=== PATIENT | female | born 1965 | race Caucasian/White ===

== ENCOUNTER 2017-05-30 12:32 | Emergency (ER) | payer BC ==
--- NOTE | 2017-05-30 12:53 | UC ---
Headache HPI - HPI Summary HPI Summary: 52 yo female with the acute onset of left hemicranial MALDONADO about 3 hours ago photophobic nausea facial flushing no CP or SOB Hx of migraine but they always start gradually for her and ramp up in severity recently started on prednisone for bee sting She states she called her MD and was told to come here for a steroid shot - History Of Current Complaint Chief Complaint: UCHeadache Stated Complaint: HEAD PAIN Time Seen by Provider: 05/30/17 12:45 Hx Obtained From: Patient Onset/Duration: Sudden Onset Onset Of Symptoms: Sudden Initially Headache Was: "Worst Headache Ever" - equal to her worse MALDONADO ever Currently Pain Is: Current Pain Scale(0-10)= - 10 Pain Intensity: 10 Pain Scale Used: 0-10 Numeric Timing: Constant Character: Throbbing Location of Headache: Temporal - left Aggravating Factor: Nothing Allevating Factors: Nothing Associated Signs And Symptoms: Positive: Nausea - Allergies/Home Medications Allergies/Adverse Reactions: Allergies Allergy/AdvReac Type Severity Reaction Status Date / Time Nickel Allergy Unknown Verified 05/30/17 12:39 Reaction Details Thimerosal Allergy Unknown Verified 05/30/17 12:39 Reaction Details Home Medications: Home Medications NK [No Home Medications Reported] 05/30/17 [History Confirmed 05/30/17] PMH/Surg Hx/FS Hx/Imm Hx Previously Healthy: Yes Neurological History: Migraine - Surgical History Surgical History: None - Family History Known Family History: Positive: Hypertension - Social History Alcohol Use: Occasionally Substance Use Type: None Smoking Status (MU): Never Smoked Tobacco Review of Systems Constitutional: Negative Skin: Negative Eyes: Negative ENT: Negative Respiratory: Negative Cardiovascular: Negative Gastrointestinal: Nausea Genitourinary: Negative Motor: Negative Neurovascular: Negative Musculoskeletal: Negative Neurological: Headache Psychological: Negative All Other Systems Reviewed And Are Negative: Yes Physical Exam Triage Information Reviewed: Yes Appearance: Well-Nourished, Pain Distress Vital Signs: Initial Vital Signs Temp 96.5 F 05/30/17 12:40 Pulse 88 05/30/17 12:40 Resp 20 05/30/17 12:40 BP 184/110 05/30/17 12:40 Pulse Ox 99 05/30/17 12:40 Vital Signs Reviewed: Yes Eyes: Positive: Conjunctiva Clear ENT: Positive: Hearing grossly normal, Pharyngeal erythema. Negative: Tonsillar exudate, Trismus, Muffled/hoarse voice Neck: Positive: Supple, Nontender, No Lymphadenopathy Respiratory: Positive: Lungs clear, Normal breath sounds, No respiratory distress, No accessory muscle use Cardiovascular: Positive: RRR, No Murmur Musculoskeletal: Positive: ROM Intact, No Edema Neurological: Positive: Alert, Other: - cn2-12 intact/dtr ++ and symmetrical GCS 15/15 Psychological Exam: Normal Skin Exam: Normal Headache Course/Dx - Course Course Of Treatment: [place] [facility] [place] [facility] [place] - Differential Dx/Diagnosis Provider Diagnoses: acute onset MALDONADO Discharge - Discharge Plan Condition: Guarded Disposition: TRANS HIGHER LVL OF CARE FAC
[2017-05-30] MEDS: Morphine INJ* 2 MG/ML 1 ML SYRINGE IV ONE (12:57)
[2017-05-30 12:58] VITALS: BP 165/81
== END 2017-05-30 13:12 | disposition short-term general hospital (02) ==
LOC: UCEAST 12:32
DX: R51 Headache (principal)
CPT/HCPCS: 93005; 96374; 99213; G0463; J2270

== ENCOUNTER 2017-05-30 13:32 | Emergency (ER) | payer BC ==
[2017-05-30] MEDS ORDERED: NS 0.9% 1000 ML* 1,000 ML IV ONE (14:27)
[2017-05-30] MEDS ORDERED: Ondansetron INJ* 2 MG/ML VIAL IV ONE (14:27)
[2017-05-30] MEDS ORDERED: diPHENhydraMINE IV* 50 MG/ML 1 ml VIAL (BENADRYL) IV ONE (15:32)
[2017-05-30] MEDS ORDERED: Metoclopramide IV* 5 MG/ML 2 ML VIAL IV ONE (15:32)
--- NOTE | 2017-05-30 16:52 | ED ---
Heidi Cooper SooYoung, scribed for Greg Nath on 05/30/17 at 1413 . Headache - HPI Summary HPI Summary: A 52 y/o F referred from [facility] [place] presents to ED with c/o sudden-onset migraine onset this AM. Pert PMHx: migraines. She states this is not the worst MALDONADO of her life. Associated sx: worsening nausea. Denies fever, ear pain, sore throat. She was given morphine at [facility] [place] which did not alleviate sx. Zofran has previously helped her migraines. Pt also notes that she got hives from a bee sting three days ago. She saw her PCP yesterday, and she took Prednisone last night. She notes have had Prednisone previously without a reaction. Non-smoker, no drugs. Occ ETOH. - History Of Current Complaint Chief Complaint: EDHeadache Stated Complaint: HEAD PAIN-SENT FROM [facility] Time Seen by Provider: 05/30/17 14:10 Hx Obtained From: Patient Onset/Duration: Sudden Onset, Started hours ago, Still Present Timing: Constant Associated Signs And Symptoms: Nausea - Allergies/Home Medications Allergies/Adverse Reactions: Allergies Allergy/AdvReac Type Severity Reaction Status Date / Time Nickel Allergy Unknown Verified 05/30/17 12:39 Reaction Details Thimerosal Allergy Unknown Verified 05/30/17 12:39 Reaction Details PMH/Surg Hx/FS Hx/Imm Hx Previously Healthy: Yes Endocrine/Hematology History: Denies: Hx Diabetes Opthamlomology History: Denies: Hx Legally Blind - Cancer History Hx Chemotherapy: No Hx Radiation Therapy: No Infectious Disease History: No Infectious Disease History: Denies: Hx Clostridium Difficile, Hx Hepatitis, Hx Human Immunodeficiency Virus (HIV), Hx of Known/Suspected MRSA, Hx Shingles, Hx Tuberculosis, Hx Known/ Suspected VRE, Hx Known/Suspected VRSA, History Other Infectious Disease, Traveled Outside the [place] in Last 30 Days - Family History Known Family History: Positive: Hypertension Negative: Other - neg: Breast CA - Social History Occupation: Employed Full-time Lives: Alone Alcohol Use: Occasionally Hx Substance Use: No Substance Use Type: Reports: None Hx Tobacco Use: No Smoking Status (MU): Never Smoked Tobacco Review of Systems Negative: Fever Negative: Sore Throat, Ear Ache Positive: Nausea Positive: Headache - migraine All Other Systems Reviewed And Are Negative: Yes Physical Exam Triage Information Reviewed: Yes Vital Signs On Initial Exam: Initial Vitals Temp Pulse Resp BP Pulse Ox 97.7 F 77 18 126/77 98 05/30/17 13:55 05/30/17 13:55 05/30/17 13:55 05/30/17 13:55 05/30/17 13:55 Vital Signs Reviewed: Yes Appearance: Positive: Well-Appearing, No Pain Distress Skin: Positive: Warm, Skin Color Reflects Adequate Perfusion, Dry Head/Face: Positive: Normal Head/Face Inspection Eyes: Positive: EOMI, LEW ENT: Positive: Normal ENT inspection Neck: Positive: Supple, Nontender Cardiovascular: Positive: RRR, Pulses are Symmetrical in both Upper and Lower Extremities Abdomen Description: Positive: Nontender, Soft Bowel Sounds: Positive: Present Musculoskeletal: Positive: Normal, Strength/ROM Intact Neurological: Positive: Normal, Sensory/Motor Intact, Alert, Oriented to Person Place, Time - Claudia Coma Scale Coma Scale Total: 15 Diagnostics - Vital Signs Vital Signs Temp Pulse Resp BP Pulse Ox 05/30/17 14:02 97.7 F 82 18 126/77 98 05/30/17 13:55 97.7 F 77 18 126/77 98 - Laboratory Lab Statement: Any lab studies that have been ordered have been reviewed, and results considered in the medical decision making process. Re-Evaluation - Re-Evaluation 1 Re-Evaluation Time: 16:45 Change: Improved Comment: Pt states feeling better, pain is 0 out of 10. She's still feeling a bit drowsy. Headache Course/Dx - Course Course Of Treatment: A 52 y/o F referred from [facility] [place] presents to ED with c/o sudden -onset migraine onset this AM. Pert PMHx: migraines. Associated sx: worsening nausea. Denies fever, ear pain, sore throat. Pt also notes that she got hives from a bee sting three days ago. She saw her PCP yesterday, and she took Prednisone last night. Pt is declining CT, blood/labs, Reglan at bedside, would prefer increased Zofran. Pt give fluids and Zofran in ED. - Diagnoses Provider Diagnoses: Migraine headache Discharge - Discharge Plan Condition: Stable Disposition: HOME Patient Education Materials: Migraine Headache (ED) Referrals: Alba Ragland MD [Primary Care Provider] - Additional Instructions: Follow up with your primary care provider in 3 days. Please return to the ED if you experience new or worsening symptoms. The documentation as recorded by the Heidi liang SooYoung accurately reflects the service I personally performed and the decisions made by , Greg Nath.
[2017-05-30 17:58] VITALS: BP 126/89
== END 2017-05-30 17:57 | disposition home or self-care (01) ==
LOC: ED 13:32
DX: G43.909 Migraine, unspecified, not intractable, without status migrainosus (principal); G44.89 Other headache syndrome; R11.0 Nausea
CPT/HCPCS: 99282; J1200; J2405; J2765